=== PATIENT | male | born 1965 | race Hispanic/Latino ===

== ENCOUNTER 2016-04-17 12:38 | Emergency (ER) | payer OTHER ==
[2016-04-17] MEDS ORDERED: ADRENALIN ONE (12:40)
[2016-04-17] MEDS ORDERED: CORDARONE IV ONE (12:40)
[2016-04-17] MEDS ORDERED: MAGNESIUM SULFATE ONE (12:40)
--- NOTE | 2016-04-17 12:51 | Emergency Department Report ---
HPI - General Time Seen by Provider: 04/17/16 12:38 - HPI HPI: The patient is a 51-year-old male who presents via EMS in cardiac arrest. Per EMS the patient was found on scene 25 minutes prior to arrival unresponsive and in cardiac arrest with asystole on cardiac exercise specialist. EMS reports immediately initiated CPR and providing the patient with 2 rounds of epinephrine and 1 dose of bicarbonate. Per family the patient was last witnessed normal at 6 AM earlier this morning hours prior to arrival. ED Review of Systems ROS: Stated complaint: CVA Other details as noted in HPI Comment: Unobtainable due to pts medical conditions (unresponsive) Physical Exam - Physical Exam Physical Exam: Physical Exam: General: well-nourished, well-developed Head: Normocephalic, atraumatic Eyes: Pupils were fixed and dilated, unresponsive to light ENT: endotracheal tube present in mouth Neck: no appreciable carotid bruit or thrill Respiratory: Breath sounds equal with bagging/assisted ventilations Cardio: No distal pulses, extremities cold to touch Abdomen: soft abdomen, no obvious distention, no epigastric breath sounds with assisted ventilation Musc: No pitting edema Skin: No rash Neuro: Patient unresponsive to verbal or painful stimuli, no abnormal tonicity or posturing ED Medical Decision Making - Medical Decision Making The patient was seen and examined by myself. The patient is placed on a cardiac exercise specialist and continuous pulse ox. On initial evaluation, the patient was found to be unresponsive and remaining in cardiac arrest. Initial monitor rhythm reveals asystole. CPR was continued. IV access is established and the patient is given epinephrine and magnesium. Despite multiple rounds of CPR and medications per ACLS protocol, the patient remained without pulse and in cardiac arrest. As the patient has wide and fixed dilated pupils bilaterally, and has been in cardiac arrest for greater than 30 minutes, the patient has very poor chance of return of spontaneous circulation. The resuscitation team was queried regarding additional resuscitation efforts. No further ideas were volunteered. The resuscitation team agreed that best efforts to resuscitate the patient have been made. The resuscitation code is discontinued and the patient is pronounced . Family members are informed of the patient's passing. They are allowed to meet with the patient's body subsequently. Critical care attestation.: If time is entered above; I have spent that time in minutes in the direct care of this critically ill patient, excluding procedure time. ED Disposition Clinical Impression: Cardiac arrest Disposition: Is pt being admited?: No Does the pt Need Aspirin: No Condition: Critical Time of Disposition: 12:50
== END 2016-04-17 17:19 ==
LOC: ED 12:38
DX: I46.9 Cardiac arrest, cause unspecified (principal)
CPT/HCPCS: 92950; 99285; J0171; J0282; J3475; 82962